=== PATIENT | female | born 1950 | race Two or more races ===

== ENCOUNTER 2024-05-29 10:18 | Emergency (ER) | payer OTHER ==
[~2024-05-29] VITALS: Ht 154.9 cm; Wt 78.5 kg
[2024-05-29] MEDS ORDERED: FAMOtidine 10 MG/ML (4ML VIAL) IV STA (12:20)
[2024-05-29] MEDS ORDERED: ONDANSETRON HCL 2 MG/ML VIAL IV STA (12:20)
[2024-05-29] MEDS ORDERED: CEFTRIAXONE SODIUM 1,000 MG VIAL IV STA (12:23)
[2024-05-29 13:05] LABS: HEMATOCRIT 38.8 % (36.0-45.00); HEMOGLOBIN 13.3 g/dL (12.0-15.00); MEAN CELL VOLUME 83.4 fL (80.00-100.00); MEAN CORPUSCULAR HEMOGLOBIN 28.6 pg (27.00-32.0); MEAN CORPUSCULAR HGB CONC 34.2 g/dl (32.0-36.0); PLATELET COUNT 479 K/uL (150-450); RED BLOOD COUNT 4.65 M/uL (4.00-6.00); RED CELL DISTRIBUTION WIDTH 14.9 % (11.5-14.5)
[2024-05-29 14:03] LABS: CALCIUM 9.6 mg/dL (8.5-10.1); CREATININE SERUM 1.01 mg/dL (0.55-1.02); GFR 53.58; POTASSIUM 4.49 mEq/L (3.5-5.1)
[2024-05-29 16:21] LABS: PH,URINE 6.5 (5.0-8.0); URINE APPEARANCE Clear; URINE BILIRRUBIN Negative (NEGATIVE); URINE BLOOD Negative; URINE COLOR Yellow; URINE KETONE Negative (NEGATIVE); URINE LEUKOCYTE Negative; URINE NITRATE Negative; URINE PROTEIN Negative (NEGATIVE); URINE UROBILINOGEN 0.2 E.U./dl
[2024-05-29 16:25] LABS: URINE BACTERIA 9.7 uL (0.0-1933); URINE EPITHELIAL CELLS 2.2 uL (0.0-38.8)
[2024-05-29 16:28] LABS: URINE CAST 0.14 uL (0.0-1.40); URINE GLUCOSE 100 MG/DL (NEGATIVE); URINE RBC 0.2 uL (0.0-20.8)
[2024-05-29] MEDS ORDERED: PROTONIX40 M1 PO (18:57)
== END 2024-05-29 21:52 | disposition home or self-care (01) ==
LOC: ER 10:20
PROVIDERS: General Practice
DX: R10.9 Unspecified abdominal pain (principal); I10 Essential (primary) hypertension; E11.9 Type 2 diabetes mellitus without complications
CPT/HCPCS: 36415; 74177; 96365; 99284; J0696; J2405; J3490; Q9965